=== PATIENT | male | born 2000 | race Caucasian/White ===

== ENCOUNTER 2023-12-31 17:24 | Emergency (ER) | payer OTHER, SELFPAY ==
--- NOTE | ~2023-12-31 | XR_ITS ---
EXAM: XR finger 1st LT min 2V DATE: 12/31/2023 17:46 HISTORY: HYPEREXTENSION INJURY, METACARPAL PAIN . COMPARISON: 11/09/2019. FINDINGS: Normal mineralization. No fracture or dislocation. No lytic or blastic lesion. Status post scaphoid resection. Multiple carpal fusion screws. No erosion or periosteal change. Soft tissues wit hin normal limits. IMPRESSION: No acute osseous finding in the left thumb. Reviewed, dictated and finalized at location K. ICE UNIT OPERATOR
[2023-12-31 17:30] VITALS: BP 138/74; PULSE 68; RESP 20; TEMP 36.6; O2SAT 100
--- NOTE | 2023-12-31 18:23 | ED.GENADULT ---
HPI - General Adult General Chief complaint: Extremity Injury, Upper Stated complaint: Left Thumb Injury Time Seen by Provider: 12/31/23 18:00 Source: patient, RN notes reviewed and old records reviewed Mode of arrival: ambulatory Limitations: no limitations History of Present Illness HPI narrative: 23-year-old male presents to [facility] with complaints of injury to his left thumb which occurred today when he hyperextended his left thumb while playing basketball. Patient has applied ice to his left thumb region with swelling noted to his thenar region of his left thumb. Patient is able to move thumb with some increase discomfort. Patient has strong left radial pulse. Patient is right hand dominant. MD complaint: injury to left thumb Onset (ago): hour(s) (1 hour prior to arrival) Location: left and upper extremity (thumb) Severity scale (1-10): 3 Quality: aching Treatments prior to arrival: none and cold therapy Related Data Home Medications Medication Instructions Recorded Confirmed No Home Medications 11/09/19 11/09/19 Allergies Allergy/AdvReac Type Severity Reaction Status Date / Time No Known Allergies Allergy Verified 11/09/19 13:58 Review of Systems Review of Systems: CONSTITUTIONAL: Denies fever, chills, or sweats. EYES: Denies visual changes, redness, or discharge. ENT: Denies rhinorrhea, congestion, sore throat, or otalgia. CARDIOVASCULAR: Denies chest pain, palpitations, or edema. RESPIRATORY: Denies cough or dyspnea. GASTROINTESTINAL: Denies abdominal pain, nausea, vomiting, or diarrhea. GENITOURINARY: Denies dysuria or hematuria. SKIN: Denies rash or itching. MUSCULOSKELETAL: Denies back pain, pain to the left thumb with swelling noted, or myalgia. NEUROLOGIC: Denies headache, numbness, or weakness. PSYCHIATRIC: Denies anxiety or depression. All systems reviewed & are unremarkable except as noted in HPI and below [facility] Past Medical History Medical History (Updated 12/31/23 @ 20:23 by Taty Murray NP) Left wrist fracture Surgical History Surgical History (Updated 12/31/23 @ 20:17 by Taty Murray NP) History of orthopedic surgery left wrist screws Social History Social History (Updated 11/09/19 @ 15:04 by Carmen Bernal, IRON WORKER APPRENTICE) Smoking status: Never smoker Alcohol intake: never Substance use: never Comments At time of signature, agree with nursing past medical, surgical, social and family history. There is no relevant family history pertinent to the presenting complaint Exam Narrative: GENERAL: Well-appearing, well-nourished, and in no acute distress. HEAD: Normocephalic, atraumatic. EYES: PERRLA and EOMI. ENT: Nares clear, no rhinorrhea or epistaxis. Mucous membranes moist. NECK: Supple.no lymphadenopathy CHEST: Clear to auscultation. No respiratory distress. HEART: Regular rate and rhythm. No murmur heard. Normal peripheral pulses. ABDOMEN: Soft, nontender, nondistended, normal active bowel sounds. EXTREMITIES: Normal range of motion. No edema.Exception noted to left thumb and thenar region with some discomfort and noted swelling from injury. Patient has strong left radial wrist pulse, no tingling or numbness to finger or thumb left hand, nail beds left hand have brisk capillary refill. SKIN: Warm, dry, no rash. NEURO: No focal deficits. Alert and oriented x3. Course Course Emergency Course: Patient is aware of diagnosis, understands and agrees to treatment plan.? Anticipatory guidance given.? Patient agrees to follow-up as directed and is aware of reasons to seek care at the emergency department. Portions of this record may have been created with voice recognition software Level of Care: Express Care Visit Vital Signs Vital signs: Vital Signs Temperature 36.6 C 12/31/23 17:30 Pulse Rate 68 12/31/23 17:30 Respiratory Rate 20 12/31/23 17:30 Blood Pressure 138/74 12/31/23 17:30 Pulse Oximetry 100 12/31/23 17:30 Oxygen Deliver
== END 2023-12-31 18:35 | disposition home or self-care (01) ==
PROVIDERS: Emergency Provider Registered Nurse; PCP Family Medicine
DX: S69.92XA Unspecified injury of left wrist, hand and finger(s), initial encounter (principal); X50.9XXA Other and unspecified overexertion or strenuous movements or postures, initial encounter; Y93.67 Activity, basketball
CPT/HCPCS: 73140; 99213; G0463

== ENCOUNTER 2024-06-03 17:20 | Emergency (ER) | payer OTHER, SELFPAY ==
--- NOTE | ~2024-06-03 | XR_ITS ---
EXAMINATION: XR ankle RT min 3V DATE: 06/03/2024 18:25 INDICATION: Right ankle pain and swelling. TECHNIQUE: 5 views of right ankle were obtained. COMPARISON: None. FINDINGS: Bone alignment is normal. No fracture. Joint spaces are normal. There is ankle soft tissue swelling. IMPRESSION: 1. No fracture. Reviewed, dictated and finalized at location E. IMPRESSION: 1. No fracture.
[2024-06-03 17:31] VITALS: BP 144/62; PULSE 59; RESP 16; TEMP 36.4; O2SAT 100
--- NOTE | 2024-06-03 17:33 | ED.LOWEXIN ---
HPI - Extremity Injury (Lower) General Chief Complaint: Extremity Injury, Lower <Rupal Tyler APRN - Last Filed: 06/03/24 19:28> Stated Complaint: Right Ankle Injury <Rupal Tyler APRN - Last Filed: 06/03/24 19:28> Time Seen by Provider: 06/03/24 17:33 <Rupal Tyler APRN - Last Filed: 06/03/24 19:28> Source: patient, RN notes reviewed and old records reviewed <Rupal Tyler APRN - Last Filed: 06/03/24 19:28> Mode of arrival: ambulatory <Rupal yTler APRN - Last Filed: 06/03/24 19:28> Limitations: no limitations <Rupal Tyler APRN - Last Filed: 06/03/24 19:28> History of Present Illness HPI Narrative: 23-year-old male presents to the [facility] with pain, swelling and bruising to the lateral aspect of the right foot and ankle. Patient states that he was playing basketball last night when he jumped, landed and rolled his ankle. Has been icing and elevating it. Has had a brace on it. Sensation intact, capillary refill under 2 seconds. Positive pedal pulse <Rupal Tyler APRN - Last Filed: 06/03/24 19:28> Related Data Home Medications: Home Medications Medication Instructions Recorded Confirmed No Home Medications 11/09/19 11/09/19 <Rupal Tyler APRN - Last Filed: 06/03/24 19:28> Allergies/Adverse Reactions: Allergies Allergy/AdvReac Type Severity Reaction Status Date / Time No Known Allergies Allergy Verified 11/09/19 13:58 <Rupal Tyler APRN - Last Filed: 06/03/24 19:28> Review of Systems Review of Systems: All systems reviewed & are unremarkable except as noted in HPI and below <Rupal Tyler APRN - Last Filed: 06/03/24 19:28> Constitutional: Constitutional: Reports no additional constitutional complaints <Rupal Tyler APRN - Last Filed: 06/03/24 19:28> Eyes: Eyes: Reports no additional eye complaints <Rupal Tyler APRN - Last Filed: 06/03/24 19:28> ENT: Reports system reviewed and no additional complaints, except as documented <Rupal Tyler APRN - Last Filed: 06/03/24 19:28> Cardiovascular: Cardiovascular: Reports no additional cardiovascular complaints, Denies chest pain and Denies dyspnea <Rupal Tyler, GUEST SERVICE REPRESENTATIVE - Last Filed: 06/03/24 19:28> Respiratory: Respiratory: Reports no additional respiratory complaints, Denies chest congestion, Denies cough and Denies dyspnea <Rupal Tyler, GUEST SERVICE REPRESENTATIVE - Last Filed: 06/03/24 19:28> Gastrointestinal: Gastrointestinal: Reports no additional gastrointestinal complaints, Denies abdominal pain, Denies nausea and Denies vomiting <Rupal Tyler GUEST SERVICE REPRESENTATIVE - Last Filed: 06/03/24 19:28> Musculoskeletal: Musculoskeletal: Reports as per HPI, Reports arthralgias (Right ankle) and Reports joint swelling (Right ankle) <Rupal Tyler GUEST SERVICE REPRESENTATIVE - Last Filed: 06/03/24 19:28> Integumentary/Breasts: Skin/Breast: Reports system reviewed and no additional complaints, except as docu <Rupal Tyler, GUEST SERVICE REPRESENTATIVE - Last Filed: 06/03/24 19:28> Neurologic: Reports system reviewed and no additional complaints, except as documented <Rpual Tyler GUEST SERVICE REPRESENTATIVE - Last Filed: 06/03/24 19:28> Psychiatric: Psychiatric: Reports no additional psychiatric complaints <Rupal Tyler APRN - Last Filed: 06/03/24 19:28> Allergic/Immunologic: Allergic/Immunologic: Reports no additional allergic/immunologic complaints <Rupal Tyler GUEST SERVICE REPRESENTATIVE - Last Filed: 06/03/24 19:28> [facility] Past Medical History Medical History: Medical History Left wrist fracture <Rupal Tyler APRN - Last Filed: 06/03/24 19:28> Surgical History Surgical History: Surgical History History of orthopedic surgery left wrist screws <Rupal Tyler APRN - Last Filed: 06/03/24 19:28> Social History Social History: Social History Smoking status: Never smoker Alcohol in
== END 2024-06-03 18:45 | disposition home or self-care (01) ==
PROVIDERS: Emergency Provider Nurse Practitioner; PCP Family Medicine
DX: S93.401A Sprain of unspecified ligament of right ankle, initial encounter (principal); X50.9XXA Other and unspecified overexertion or strenuous movements or postures, initial encounter; Y93.67 Activity, basketball
CPT/HCPCS: 73610; 99213; G0463

== ENCOUNTER 2024-08-12 10:31 | Emergency (ER) | payer OTHER, SELFPAY ==
--- NOTE | ~2024-08-12 | XR_ITS ---
EXAMINATION: XR wrist RT min 3V DATE: 08/12/2024 10:57 INDICATION: Right wrist injury. TECHNIQUE: 4 views of right wrist were obtained. COMPARISON: None. FINDINGS: Alignment is normal. No fracture. Joint spaces are normal. IMPRESSION: 1. Normal right wrist. Reviewed, dictated and finalized at location A. IMPRESSION: 1. Normal right wrist.
[2024-08-12 10:40] VITALS: BP 123/71; PULSE 60; RESP 18; TEMP 36.7; O2SAT 100
--- NOTE | 2024-08-12 10:46 | ED.GENADULT ---
HPI - General Adult General Chief complaint: Extremity Injury, Upper Stated complaint: Right Wrist Injury Source: patient Mode of arrival: ambulatory Limitations: no limitations History of Present Illness HPI narrative: 23 y/o male presented for c/o right wrist pain after injury 2 weeks ago. States he FOOSH while playing basketball. He continued to paly and did not seek evaluation after the injury because it did not hurt until about 2 days later. Continues to rate pain up to 8/10 at times with certain movements. Denies deformity, swelling, bruising, numbness, tingling or weakness. Taking ibuprofen. Related Data Home Medications Medication Instructions Recorded Confirmed No Home Medications 11/09/19 08/12/24 Allergies Allergy/AdvReac Type Severity Reaction Status Date / Time No Known Allergies Allergy Verified 08/12/24 10:47 Review of Systems Review of Systems: CONSTITUTIONAL: Denies body aches, fever, chills CARDIOVASCULAR: Denies chest pain, palpitations, or edema. RESPIRATORY: Denies cough or dyspnea. SKIN: Denies rash, itching, or wounds. MUSCULOSKELETAL: reports right wrist pain NEUROLOGIC: Denies headache, numbness, tingling, or weakness. All systems reviewed & are unremarkable except as noted in HPI and below [facility] Past Medical History Medical History Left wrist fracture Surgical History Surgical History History of orthopedic surgery left wrist screws Social History Social History Smoking status: Never smoker Alcohol intake: never Substance use: never Comments At time of signature, I have reviewed and agree with nursing past medical, surgical, social and family history unless otherwise noted. Please see nursing chart for further information. There is no relevant family history pertinent to the presenting complaint Exam Narrative: GENERAL: Well-appearing CHEST: Speaks in full sentences. No respiratory distress. HEART: Regular rate and rhythm. Normal and equal peripheral pulses. EXTREMITIES: Right and has normal strength and sensation, normal range of motion at right wrist without pain with movement. No swelling, erythema, warmth or ecchymosis, No point tenderness. Reports subjective pain to distal radius with full flexion and extension. No open wounds, or obvious deformity; alignment normal, pulse palpable and equal bilaterally, skin warm, dry, pink. Capillary refill less than 3 seconds. SKIN: Warm, dry NEURO: Alert and oriented x3. PSYCH: Normal mood and affect Course Course Emergency Course: Patient is aware of diagnosis, understands and agrees to treatment plan. Anticipatory guidance given. Patient agrees to follow-up as directed and is aware of reasons to seek care at the emergency department. Portions of this record may have been created with voice recognition software Level of Care: Express Care Visit Vital Signs Vital signs: Reviewed Medical Decision Making MDM Narrative Medical decision making narrative: Discussed physical exam findings and xray. Advised supportive measures and signs/symptoms to go to the ER. Pt is appropriate for outpt treatment and f/u. Differential Diagnosis Differential Diagnosis: sprain/strain of wrist, Colles' fracture, wrist fracture, hand fracture, finger sprain, dislocation of finger, gout, cellulitis, arthritis, tendonitis Imaging Data Radiologist's impression: Patient: Husam Ramirez : 2000 MR#: [id number] Age: 23 Acct:[id number] Loc: [facility] ADM Date: 08/12/24Attending Dr: Ordering Physician: Stephenie Alexander APRN Date of Service: 08/12/24 Procedure(s): XR wrist RT min 3V Accession Number(s): [id number] cc: Rosaura, Seema Hogan MD; Stephenie Alexander APRN~ EXAMINATION: XR wrist RT min 3V DATE: 08/12/2024 10:57 INDICATION
== END 2024-08-12 11:30 | disposition home or self-care (01) ==
PROVIDERS: Emergency Provider Nurse Practitioner Family; PCP Family Medicine
DX: S63.501A Unspecified sprain of right wrist, initial encounter (principal); S66.911A Strain of unspecified muscle, fascia and tendon at wrist and hand level, right hand, initial encounter; W19.XXXA Unspecified fall, initial encounter; Y93.67 Activity, basketball
CPT/HCPCS: 73110; 99213; G0463

== ENCOUNTER 2025-08-13 17:57 | Emergency (ER) | payer OTHER, SELFPAY ==
--- OUTSIDE RECORDS SUMMARY | 2025-08-13 17:59 | XMS_ITS | Clinical Summary ---
Author Organization [facility] Address [address] [place] [address] Phone Care Team Providers Care Splicer Machine Operator Name Role Phone Provider, None Primary Care Provider Unavailabl e Allergies No known active allergies Medications diazePAM (VALIUM) 5 MG Tablet Take 1 Tab by mouth every 8 hours as needed for Muscle spasms. 30 Tab 10/17/2018 Active Social History Tobacco Use Types Packs/Day Years Used Date Smoking Tobacco: Never Sex and Gender Information Value Date Recorded Sex Assigned at Not on file Legal Sex Male 5:17 PM CDT Gender Identity Not on file Sexual Orientation Not on file Last Filed Vital Signs Vital Sign Reading Time Taken Comments Blood Pressure 127/70 10/17/2018 10:15 PM TIRE RETREADER Pulse 82 10/17/2018 10:15 PM TIRE RETREADER Temperature 36.4 C (97.6 F) 10/17/2018 8:34 PM TIRE RETREADER Respiratory Rate 16 10/17/2018 8:34 PM TIRE RETREADER Oxygen Saturation 100% 10/17/2018 10:15 PM TIRE RETREADER Inhaled Oxygen Concentration - - Weight 99.8 kg (220 lb) 10/17/2018 8:34 PM TIRE RETREADER Height 180.3 cm (5' 11) 10/17/2018 8:34 PM TIRE RETREADER Body Mass Index 30.68 10/17/2018 8:34 PM TIRE RETREADER Plan of Treatment Health Maintenance Due Date Last Done Comments Hepatitis C Virus (HCV) Screening 2000 Meningococcal B Immunization (1 of 2 - Standard) 2017 SARS-COV-2 Immunization ( season) 2024 Influenza Immunization (#1) 07/28/202512/28, 08/22/2011, 10/30/2007 Respiratory Syncytial Virus (RSV) Immunization (Adult) (1 - 1-dose 75+ series) 2076 Hepatitis B Immunization Completed 002, 2001, 2001 Pneumococcal Immunization Combined Aged Out 01/09/2003, 06/26/2002 No longer eligibl e based on patient's age to complete this topic Polio (IPV) Immunization Discontinued 003, 03/08/2002, 2001 Measles Mumps Rubella (MMR) Immunization Discontinued 01/10/2006, 2002 Varicella Immunization Discontinued 01/11/2007, 2001 Hepatitis A Immunization Discontinued 07/19/2007, 07/2003 DTaP/Tdap/Td Immunization Discontinued 2012, 01/10/2006, 01/09/2003, Additional history exists Meningococcal Immunization (ACWY) Aged Out 07/08/2013 No longer eligible based on patient's age to complete this topic TdaP Immunization Completed 07/08/2013 Human Papillomavirus (HPV) Immunization Completed 08/01/2017, 10/03/2011, 08/22/2011 Rotavirus Immunization Aged Out No lo nger eligible based on patient's age to complete this topic Care Teams Splicer Machine Operator Relationship Specialty Start Date End Date Provider, None [place] PCP - General 08/24/16
[2025-08-13 18:02] VITALS: BP 136/66; PULSE 60; RESP 16; TEMP 36.6; O2SAT 100
--- NOTE | 2025-08-13 18:55 | ED.UPPEXIN ---
HPI - Extremity Injury (Upper) General Chief Complaint: Extremity Injury, Upper Stated Complaint: left shoulder injury Time Seen by Provider: 08/13/25 18:46 Source: patient and RN notes reviewed Mode of arrival: ambulatory Limitations: no limitations History of Present Illness HPI narrative: Patient presents today complaining of left shoulder pain. Two days ago patient was playing basketball and dislocated his left shoulder. Someone with him reduced it. He has some persistent mild pain with movement. Denies numbness or tingling. No OTC treatment prior to arrival. Related Data Home Medications ?Medication ?Instructions ?Recorded ?Confirmed ?Last Taken ?Type No Home Medications 11/09/19 08/13/25 Unknown History Allergies Allergy/AdvReac Type Severity Reaction Status Date / Time No Known Allergies Allergy Verified 08/13/25 18:06 [facility] Past Medical History Medical History Left wrist fracture Surgical History Surgical History History of orthopedic surgery left wrist screws Social History Social History Smoking status: Never smoker Alcohol intake: never Substance use: never Comments At time of signature, I have reviewed and agree with nursing past medical, surgical, social and family history unless otherwise noted. Please see nursing chart for further information. There is no relevant family history pertinent to the presenting complaint Exam Narrative: GENERAL: Well-appearing, well-nourished, and in no acute distress. HEAD: Normocephalic, atraumatic. EYES: EOMI. No redness or drainage. Conjunctivae normal. ENT: Mucous membranes pink and moist. NECK: Normal AROM. CHEST: No respiratory distress. EXTREMITIES: Left shoulder: Patient had difficulty localizing the area of his pain. No bony tenderness of the shoulder with palpation. With P ROM patient had some mild, ?pressure? with internal and external rotation, but no pain with other movements. Distal sensation intact. Capillary refill normal. Radial pulse normal. Strength normal. No edema or deformity noted. SKIN: Warm, dry, no rash. Capillary refill normal. Normal skin turgor. NEURO: No focal deficits. Alert and oriented x3. Gait steady. PSYCH: Normal affect. No signs of depression or anxiety. Course Course Level of Care: Express Care Visit Vital Signs Vital signs: Vital Signs Temperature 98 F 08/13/25 18:02 Pulse Rate 60 08/13/25 18:02 Respiratory Rate 16 08/13/25 18:02 Blood Pressure 136/66 08/13/25 18:02 Pulse Oximetry 100 08/13/25 18:02 Oxygen Delivery Room Air 08/13/25 18:02 Temperature 98 F 08/13/25 18:02 Pulse Rate 60 08/13/25 18:02 Respiratory Rate 16 08/13/25 18:02 Blood Pressure 136/66 08/13/25 18:02 Pulse Oximetry 100 08/13/25 18:02 Oxygen Delivery Room Air 08/13/25 18:02 Reviewed MDM - Extremity Injury (Upper) MDM Narrative Medical decision making narrative: 24-year-old male patient presents with left shoulder pain after dislocation and reduction of shoulder while playing basketball 2 days ago. Upon exam, He has some mild persistent pain that is difficult to localize and no bony pain with palpation of the shoulder. Very mild, ?pressure? with internal and external rotation of the shoulder. At this time, x-rays are not indicated. Recommend PCP or ortho follow-up for further evaluation. Vital signs stable. Patient agrees to plan. Anticipatory guidance given Differential Diagnosis Differential diagnosis: Likely other (Shoulder strain, ligamentous injury.) Critical Care Time Critical Care Time Critical Care Time: No Discharge Plan Discharge Clinical Impression: Injury of left shoulder Qualifiers: Encounter type: initial encounter Qualified Code(s): S49.92XA - Unspecified injury of left shoulder and upper arm, initial encounter Patient Disposition: Home Condition: Stable Instructions: Shoulder Pain (ED) Additional Instructions: Please follow-up with your PCP or orthopedics for further evaluation. No heavy lifting until your further evaluated. Take Tylenol or ibuprofen if needed for discomfort. Your blood pressure was elevated above 120/80 today at Urgent Care. This puts you above the threshold for follow up. Please schedule a followup visit with your personal physician as soon as possible, for further evaluation and treatment. Even blood pressure exceeding 120/80 may indicate pre-hypertension. Patient Language: Maori Prescriptions: No Action No Home Medications Follow-up/Referrals: PHYSICIAN NOT ON STAFF,NONSTAFF [Primary Care Provider] Hugo Rothman MD [Physician, Orthopedics] Time of Disposition: 18:54
== END 2025-08-13 19:00 | disposition home or self-care (01) ==
PROVIDERS: Emergency Provider Nurse Practitioner
DX: S49.92XA Unspecified injury of left shoulder and upper arm, initial encounter (principal); X58.XXXA Exposure to other specified factors, initial encounter; Y93.67 Activity, basketball
CPT/HCPCS: 99212; G0463